=== PATIENT | male | born 1935 ===

== ENCOUNTER 2020-11-17 18:43 | Inpatient (IN) ==
[2020-11-17 20:05] LABS: Basophils % 0.3 %; Eosinophils # 0.2 K/mcL (0.0-0.6); Eosinophils % 1.4 %; Hematocrit 37.2 % (37.5-50.1); Hemoglobin 12.1 g/dL (12.9-16.9); Immature Granulocytes % 0.3 % (0-4); Lymphocytes # 0.8 K/mcL (0.6-4.6); Lymphocytes % 6.7 %; Mean Corpuscular HGB Conc 32.5 g/dL (31.6-35.5); Mean Corpuscular Hemoglobin 32.7 pg (28.0-33.3); Mean Corpuscular Volume 100.5 fL (83.0-100.0); Mean Platelet Volume 9.9 fL (9.4-12.4); Monocytes # 1.3 K/mcL (0.0-1.3); Monocytes % 10.2 %; Neutrophils # 10.1 K/mcL (1.6-8.9); Platelet Count 281 K/mcL (140-400); Segmented Neutrophils % 81.1 %; White Blood Count 12.5 K/mcL (4.3-11.1)
[2020-11-17 20:06] LABS: Bacteria,Urine Few per hpf (None-Few); Bilirubin,Urine Negative (Negative); Blood,Urine Trace (Negative); Clarity,Urine Turbid (Clear); Color,Urine Yellow (Yellow); Glucose,Urine (UA) Normal (Normal); Hyaline Casts,Urine Moderate per lpf (None Seen); Ketones,Urine Negative (Negative); Leukocyte Esterase,Urine Large (Negative); Mucus,Urine Few per lpf (None-Few); Nitrite,Urine Negative (Negative); PH,Urine 5.5 pH Units (5.0-8.0); Protein,Urine 100 mg/dL (Neg-Trace); Specific Gravity,Urine 1.024 (1.010-1.025); Squamous Epithelial Cell,Urine Few per hpf (None-Few); Urobilinogen,Urine Normal (Normal); WBC,Urine 50-100 per hpf (0-3)
[2020-11-17 20:28] LABS: INR 1.1
[2020-11-17 20:31] LABS: Albumin 4.3 g/dL (3.5-5.7); Albumin/Globulin Ratio 1.1 (1.1-2.2); Bilirubin,Total 0.6 mg/dL (0.3-1.0); Calcium 9.6 mg/dL (8.6-10.3); Globulin 3.8 g/dL (2.4-3.5); Potassium 8.6 mEq/L (3.5-5.1); Total Protein 8.1 g/dL (6.4-8.9); Troponin I 0.04 ng/mL (< 0.04)
[2020-11-17] MEDS ORDERED: Insulin Human Regular 10 UNIT in 0.9 % Sodium Chloride 10 ML IV ONE (20:33)
[2020-11-17] MEDS ORDERED: *HR* Dextrose 50 % in Water (Vial) 50 ML VIAL IVP ONE (20:34)
[2020-11-17] MEDS ORDERED: Albuterol 2.5 MG/3 ML NEBULIZER IH ONE (20:36)
[2020-11-17] MEDS ORDERED: 0.9 % Sodium Chloride 1,000 ML IV ONE (21:04)
[2020-11-17] MEDS: Calcium Gluconate 1gm/50mL 1 GM/50 ML BAG IVPB SCH ×2 (21:18→22:20)
[2020-11-17] MEDS ORDERED: cefTRIAXone 1,000 MG in 0.9 % Sodium Chloride Mini Bag 100 ML IVPB ONE (21:27)
[2020-11-17] MEDS ORDERED: Aspirin 325 MG TABLET PO ONE (22:30)
[2020-11-17 23:28] LABS: Calcium 9.5 mg/dL (8.6-10.3); Potassium 6.7 mEq/L (3.5-5.1)
[2020-11-17 23:44] LABS: Magnesium 2.1 mg/dL (1.6-2.6)
[2020-11-18] MEDS ORDERED: *HR* Dextrose 50 % in Water (Vial) 50 ML VIAL IVP ONE (00:04)
[2020-11-18] MEDS ORDERED: Albuterol 2.5 MG/3 ML NEBULIZER IH ONE (00:04)
[2020-11-18] MEDS ORDERED: Insulin Human Regular 10 UNIT in 0.9 % Sodium Chloride 10 ML IV ONE (00:05)
[2020-11-18] MEDS ORDERED: Acetaminophen 325 MG TABLET PO PRN (01:39)
[2020-11-18] MEDS ORDERED: Naloxone 0.4 MG/ML INJ IVP PRN (01:39)
[2020-11-18] MEDS ORDERED: Ondansetron 4 MG/2 ML VIAL IVP PRN (01:39)
[2020-11-18] MEDS ORDERED: 0.9 % Sodium Chloride 1,000 ML IV ONE (04:52)
[2020-11-18 05:25] LABS: Sodium, Urine 37.8 mEq/L
[2020-11-18 05:42] LABS: Basophils % 0.4 %; Eosinophils # 0.1 K/mcL (0.0-0.6); Eosinophils % 1.3 %; Hematocrit 35.5 % (37.5-50.1); Immature Granulocytes % 0.4 % (0-4); Lymphocytes # 0.9 K/mcL (0.6-4.6); Lymphocytes % 8.4 %; Mean Corpuscular HGB Conc 33.8 g/dL (31.6-35.5); Mean Corpuscular Hemoglobin 32.3 pg (28.0-33.3); Mean Corpuscular Volume 95.7 fL (83.0-100.0); Mean Platelet Volume 9.6 fL (9.4-12.4); Monocytes # 1.2 K/mcL (0.0-1.3); Monocytes % 11.5 %; Neutrophils # 8.2 K/mcL (1.6-8.9); Platelet Count 275 K/mcL (140-400); Red Blood Count 3.71 M/mcL (4.19-5.50); Red Cell Distribution Width 13.9 % (11.5-14.5); White Blood Count 10.5 K/mcL (4.3-11.1)
[2020-11-18] MEDS: *HR* Heparin 5,000 UNIT/ML VIAL SQ SCH ×2 (05:58→18:18)
[2020-11-18] MEDS: 0.9 % Sodium Chloride 1,000 ML IVC SCH ×2 (06:19→15:54)
[2020-11-18 06:55] LABS: Magnesium 2.3 mg/dL (1.6-2.6); Potassium 6.6 mEq/L (3.5-5.1); Troponin I 0.07 ng/mL (< 0.04)
[2020-11-18] MEDS ORDERED: cefTRIAXone 1,000 MG in Water for inj. (sterile) 10 ML IVP SCH (09:00)
[2020-11-18] MEDS: SODIUM ZIRCONIUM CYCLOSILICATE 5 GM POWD.PACK PO SCH (09:53)
[2020-11-18 12:34] LABS: Potassium 6.5 mEq/L (3.5-5.1); Troponin I 0.17 ng/mL (< 0.04)
[2020-11-19 02:54] LABS: Basophils # 0.1 K/mcL (0.0-0.2); Basophils % 0.6 %; Eosinophils # 0.2 K/mcL (0.0-0.6); Eosinophils % 2.7 %; Hematocrit 37.1 % (37.5-50.1); Hemoglobin 12.1 g/dL (12.9-16.9); Immature Granulocytes % 0.1 % (0-4); Lymphocytes # 0.9 K/mcL (0.6-4.6); Lymphocytes % 10.7 %; Mean Corpuscular HGB Conc 32.6 g/dL (31.6-35.5); Mean Corpuscular Hemoglobin 33.2 pg (28.0-33.3); Mean Corpuscular Volume 101.9 fL (83.0-100.0); Mean Platelet Volume 9.9 fL (9.4-12.4); Monocytes # 1.1 K/mcL (0.0-1.3); Monocytes % 13.7 %; Neutrophils # 5.7 K/mcL (1.6-8.9); Platelet Count 249 K/mcL (140-400); Red Blood Count 3.64 M/mcL (4.19-5.50); Red Cell Distribution Width 13.8 % (11.5-14.5); Segmented Neutrophils % 72.2 %; White Blood Count 7.9 K/mcL (4.3-11.1)
[2020-11-19] MEDS: 0.9 % Sodium Chloride 1,000 ML IVC SCH ×3 (02:54→17:05)
[2020-11-19 03:17] LABS: Calcium 9.6 mg/dL (8.6-10.3)
[2020-11-19] MEDS: *HR* Heparin 5,000 UNIT/ML VIAL SQ SCH ×2 (05:11→17:05)
[2020-11-19] MEDS: SODIUM ZIRCONIUM CYCLOSILICATE 5 GM POWD.PACK PO SCH (07:19)
[2020-11-19] MEDS: Aspirin 81 MG TAB.CHEW PO SCH (09:48)
[2020-11-19] MEDS ORDERED: Melatonin 3 MG TABLET PO PRN (11:13)
[2020-11-19] MEDS: Metoprolol XL (24 HR) Succ 25 MG TAB.ER.24H PO SCH (11:24)
[2020-11-19] MEDS: traZODone 50 MG TABLET PO SCH ×2 (15:57→22:11)
[2020-11-19] MEDS: QUEtiapine Fumarate 25 MG TABLET PO SCH (22:11)
[2020-11-20 02:12] LABS: BUN/Creatinine Ratio 39 (6-26); Blood Urea Nitrogen 49 mg/dL (8-23); Calcium 9.3 mg/dL (8.6-10.3); Carbon Dioxide 19 mEq/L (23-29); Chloride 110 mEq/L (98-107); Glucose 90 mg/dL (70-105); Osmolality,Calculated 295 (280-300); Potassium 5.1 mEq/L (3.5-5.1); Sodium 136 mEq/L (136-145); eGFR For African Americans > 60 (> 60); eGFR For Non-African Americans 55 (> 60)
[2020-11-20 02:50] VITALS: BP 116/75
[2020-11-20] MEDS: *HR* Heparin 5,000 UNIT/ML VIAL SQ SCH (04:59)
[2020-11-20] MEDS: 0.9 % Sodium Chloride 1,000 ML IVC SCH (05:00)
[2020-11-20] MEDS: Metoprolol XL (24 HR) Succ 25 MG TAB.ER.24H PO SCH (07:42)
[2020-11-20] MEDS: traZODone 50 MG TABLET PO SCH (07:42)
[2020-11-20] MEDS: Aspirin 81 MG TAB.CHEW PO SCH (07:42)
[2020-11-20] MEDS: SODIUM ZIRCONIUM CYCLOSILICATE 5 GM POWD.PACK PO SCH (07:43)
[2020-11-20] MEDS: QUEtiapine Fumarate 25 MG TABLET PO SCH (07:43)
[2020-11-20] MEDS ORDERED: Cholecalciferol (D-3) 1,000 UNIT (25MCG) TABLET PO SCH (09:00)
[2020-11-22 01:53] LABS: Alpha 2 Globulin (PEP) 0.97 g/dL (0.48-1.05); Beta Globulin (PEP) 0.92 g/dL (0.48-1.10)
[2020-11-22 07:25] LABS: IFE Reflexed NOT DONE
== END 2020-11-20 12:06 | disposition home or self-care (01) | DRG 682 ==
LOC: EMEROOARM 18:43 → 2ANU 18:43 → SUATTDRO 11-18 00:58 → 2NNU 11-18 01:01
PROVIDERS: ADMIT Student in an Organized Health Care Education/Training Program; ATTEND Internal Medicine